=== PATIENT | male | born 1945 | race Caucasian/White ===

== ENCOUNTER 2022-12-22 07:41 | Day surgery (SDC) | payer OTHER ==
[2022-12-22] MEDS ORDERED: Sodium Chloride 0.9(Preservative Free) 10 ML IJ ONE (07:42)
[2022-12-22] MEDS ORDERED: Depo-Medrol 40 MG/ML IM ONE (07:42)
[2022-12-22] MEDS ORDERED: DIPRIVAN 200 MG/20 ML IV ONE (08:58)
--- NOTE | 2022-12-22 10:09 | XRAY ---
Indication: Left L4-S1 transforaminal SONY. Intraoperative fluoroscopy provided for 55 seconds. 4 digital spot image submitted for interpretation demonstrates posterior needle tips projecting over the expected left L4 and L5 nerve roots. Small amount of contrast injected for needle tip placement. Correlate with intraoperative findings/report.
[2022-12-22] MEDS ORDERED: Lactated Ringers 1,000 ML IV ONE (10:43)
--- NOTE | 2022-12-22 12:26 | XRAY ---
55 seconds of fluoroscopy was used in surgery for a left L4-S1 transforaminal SONY.
== END 2022-12-22 09:26 | disposition home or self-care (01) ==
LOC: SDC-PAIN 07:41
PROVIDERS: ATTEND Psychiatry & Neurology Pain Medicine
DX: M54.16 Radiculopathy, lumbar region (principal); E11.9 Type 2 diabetes mellitus without complications; Z79.899 Other long term (current) drug therapy
CPT/HCPCS: 64483; 64484; 72100; 77003; 82947; J1030; J2704; Q9966

== ENCOUNTER 2023-06-22 08:12 | Day surgery (SDC) | payer OTHER ==
[2023-06-22] MEDS ORDERED: Sodium Chloride 0.9(Preservative Free) 10 ML IJ ONE (08:13)
[2023-06-22] MEDS ORDERED: Decadron 4 MG INJ IV ONE (08:13)
[2023-06-22] MEDS ORDERED: DIPRIVAN 200 MG/20 ML IV ONE (10:25)
[2023-06-22] MEDS ORDERED: Lactated Ringers 1,000 ML IV ONE (11:51)
--- NOTE | 2023-06-22 12:02 | XRAY ---
Indication: Left L4-S1 transforaminal SONY. Intraoperative fluoroscopy provided for 23 seconds. 5 digital spot images submitted for interpretation demonstrates posterior needle tips projecting over the expected left L4 and L5 nerve roots. Small amount of contrast injected for needle tip basement. Correlate with intraoperative findings/report.
--- NOTE | 2023-06-22 12:22 | XRAY ---
23 seconds of fluoroscopy was used in surgery for a left L4-S1 transforaminal SONY.
== END 2023-06-22 10:55 | disposition home or self-care (01) ==
LOC: SDC-PAIN 08:12
PROVIDERS: ATTEND Psychiatry & Neurology Pain Medicine
DX: M54.16 Radiculopathy, lumbar region (principal)
CPT/HCPCS: 64483; 64484; 72100; 77003; 82947; J1100; J2704; Q9966

== ENCOUNTER 2023-07-27 09:47 | Day surgery (SDC) | payer OTHER ==
[2023-07-27] MEDS ORDERED: LIDOCAINE HCL 1% 50 MG/5 ML VL PF IJ ONE (09:48)
[2023-07-27] MEDS ORDERED: Decadron 4 MG INJ IV ONE (09:48)
[2023-07-27] MEDS ORDERED: Lactated Ringers 1,000 ML IV ONE (11:42)
[2023-07-27] MEDS ORDERED: Xylocaine-Mpf 2% 5 Ml Vial ONE (11:44)
[2023-07-27] MEDS ORDERED: DIPRIVAN 200 MG/20 ML IV ONE ×2 (11:47→12:04)
--- NOTE | 2023-07-27 13:36 | XRAY ---
Indication: Left piriformis injection. Intraoperative fluoroscopy provided for 7 seconds. Single digital spot images submitted for interpretation demonstrates posterior needle tip projecting over left piriformis. Small amount of contrast injected for needle tip placement. Correlate with intraoperative findings/report.
--- NOTE | 2023-07-27 14:11 | XRAY ---
7 seconds of fluoroscopy was used in surgery for a left piriformis injection.
== END 2023-07-27 12:30 | disposition home or self-care (01) ==
LOC: SDC-PAIN 09:47
PROVIDERS: ATTEND Psychiatry & Neurology Pain Medicine
DX: M79.18 Myalgia, other site (principal); E11.9 Type 2 diabetes mellitus without complications
CPT/HCPCS: 20552; 72170; 77002; 82947; 99100; J1100; J2001; J2704; Q9966

== ENCOUNTER 2024-06-06 08:04 | Day surgery (SDC) | payer OTHER ==
[2024-06-06] MEDS ORDERED: dexAMETHasone sodium phosphate IJ ONE (08:05)
[2024-06-06] MEDS ORDERED: Sodium Chloride 0.9(Preservative Free) 10 ML IJ ONE (08:05)
[2024-06-06] MEDS ORDERED: propofoL IV ONE (10:19)
--- NOTE | 2024-06-06 11:57 | XRAY ---
Indication: Left L4-S1 transforaminal SONY. Intraoperative fluoroscopy provided for 22 seconds. 4 digital spot image submitted for interpretation demonstrates posterior needle tips projecting over expected left L4 and L5 nerve roots. Small amount of contrast injected for needle tip placement. Correlate with intraoperative findings/report.
--- NOTE | 2024-06-06 12:03 | XRAY ---
22 seconds of fluoroscopy was used in surgery for a left L4-S1 transforaminal SONY.
== END 2024-06-06 10:50 | disposition home or self-care (01) ==
LOC: SDC-PAIN 08:04
PROVIDERS: ATTEND Psychiatry & Neurology Pain Medicine
DX: M54.16 Radiculopathy, lumbar region (principal); E11.9 Type 2 diabetes mellitus without complications
CPT/HCPCS: 64483; 64484; 72100; 77003; 82947; J1100; J2704; Q9966

== ENCOUNTER 2025-01-09 09:34 | Day surgery (SDC) | payer OTHER ==
[2025-01-09] MEDS ORDERED: LIDOCAINE HCL 1% 50 MG/5 ML VL IJ ONE (09:35)
[2025-01-09] MEDS ORDERED: propofoL IV ONE (11:01)
[2025-01-09] MEDS ORDERED: Lactated Ringers 1,000 ML IV ONE (12:43)
--- NOTE | 2025-01-09 19:29 | XRAY ---
Indication left piriformis injection. Intraoperative fluoroscopy provided for 9 seconds. Single digital spot image submitted for interpretation demonstrates posterior needle tip projecting over left piriformis. Small amount of contrast injected for needle tip placement. Correlate with intraoperative findings/report.
--- NOTE | 2025-01-09 19:38 | XRAY ---
9 seconds of fluoroscopy was used in surgery for a left piriformis injection.
== END 2025-01-09 11:35 | disposition home or self-care (01) ==
LOC: SDC-PAIN 09:34
PROVIDERS: ATTEND Psychiatry & Neurology Pain Medicine
DX: M79.18 Myalgia, other site (principal); E11.9 Type 2 diabetes mellitus without complications